=== PATIENT | male | born 1970 | race Two or more races ===

== ENCOUNTER 2025-10-31 12:21 | Emergency (ER) | payer MEDICAID, SELFPAY ==
[2025-10-31 12:34] VITALS: BP 236/110; PULSE 65; RESP 18; TEMP 36.6; O2SAT 98; BMI 34.4
--- NOTE | 2025-10-31 12:37 | EKG_ITS ---
[facility] Test Date: 2025-10-31 Pat Name: PRADIP MUNSON Department: Room: - Gender: Male [employer]: : 1970 Requested By: ED Temporary Provider Order Number: [id number] Reading MD: ED Temporary Provider Measurements Intervals [place] Rate: 69 P: 20 SD: 135 QRS: 0 QRSD: 121 T: 69 QT: 408 QTc: 438 Interpretive Statements SINUS RHYTHM MODERATE INTRAVENTRICULAR CONDUCTION DELAY [110+ ms QRS DURATION] NONSPECIFIC ST & T-WAVE ABNORMALITY No previous ECG available for comparison /store/S0/[id number].pdf
--- NOTE | 2025-10-31 12:43 | XR_ITS ---
EXAMINATION: PA lateral chest 2 views TECHNIQUE: Upright PA lateral chest 2 views Date and time: October 31, 2025, 1246 hours INDICATIONS: Onset high blood pressure today. FINDINGS: Minor rounding left ventricle Ectatic thoracic aorta. No pneumonia or pulmonary edema Moderate thoracic spondylosis IMPRESSION: No pneumonia or pulmonary edema
--- NOTE | 2025-10-31 12:43 | XR_ITS ---
Examination: CT brain head without contrast. 2-D sagittal coronal reconstructions Date and time of exam: October 31, 2025, 1323 hours INDICATIONS: High blood pressure today with head pain CTDI: vol (mGy): 53.4 DLP: (mGycm): 1115 Technique: Multiple CT axial sections of the brain have been obtained, 5 mm slice thickness. Contrast has not been administered. 2-D sagittal, coronal reconstructions have been obtained Low dose protocols were performed. One or more of the following dose reduction techniques were used; automated exposure control, adjustment of the mA and/or KV according to patient size, use of iterative reconstruction technique. Findings: No significant ventricular enlargement. Small old infarct in the left thalamus image 22 Intra-axial or extra-axial hemorrhage density is not seen. No mass effect or midline shift Basal cisterns are not remarkable. Fourth ventricle is midline. Cranial vault intact. 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
--- NOTE | 2025-10-31 12:44 | PD.EDRME ---
Rapid Medical Screening Exam RME Arrival date/time: 10/31/25 12:21 55-year-old male presents to the emergency department today for complaint of hypertension Chief Complaint: General Adult/Misc Complain Vital signs: Vital Signs Temperature 97.9 F 10/31/25 12:34 Pulse Rate 65 10/31/25 12:34 Respiratory Rate 18 10/31/25 12:34 Blood Pressure 236/110 H 10/31/25 12:34 Pulse Oximetry (%) 98 10/31/25 12:34 Oxygen Delivery Method Room Air 10/31/25 12:34 Vital signs reviewed by provider: Yes Exam: On exam patient well-appearing but patient is quite hypertensive Clinical Impression: Labs, EKG, imaging obtained
[2025-10-31 12:58] VITALS: BP 236/110; PULSE 65
[2025-10-31 13:54] LABS: Basophils # (Auto) 0.0 Thou/mm3 (0.0-0.2); Basophils % (Auto) 1 % (0-2.5); Eosinophils # (Auto) 0.1 Thou/mm3 (0.0-0.5); Eosinophils % (Auto) 2 % (0-10); Hematocrit 47.5 % (41.0-53.0); Hemoglobin 16.3 g/dL (13.5-16.0); Immature Granulocytes Auto 0.01 Thou/mm3 (0.00-0.00); Lymphocytes # (Auto) 1.4 Thou/mm3 (1.0-4.8); Lymphocytes % (Auto) 22 % (10-50); Mean Corpuscular HGB Conc 34.3 g/dl (31.0-37.0); Mean Corpuscular Hemoglobin 31.2 pg (25.0-35.0); Mean Corpuscular Volume 91 fL (80-100); Monocytes # (Auto) 0.5 Thou/mm3 (0.0-0.8); Monocytes % (Auto) 8 % (0-12); Neutrophils # (Auto) 4.4 Thou/mm3 (1.8-7.7); Neutrophils % (Auto) 68 % (37-80); Nucleated Red Blood Cell # 0.00 Thou/mm3 (0.00-0.00); Nucleated Red Blood Cell % 0 /100 WBC (0); Platelet Count 181 Thou/mm3 (140-440); RDW Standard Deviation 41.9 fL (35.1-43.9); Red Blood Count 5.22 Miln/mm3 (4.50-5.90); White Blood Count 6.4 Thou/mm3 (3.8-10.6)
[2025-10-31 14:20] LABS: INR 1.0 (0.9-1.3); Partial Thromboplastin Time 30.2 Seconds (22.0-36.0); Prothrombin Time 11.0 Seconds (9.0-12.2)
[2025-10-31 14:24] LABS: B-Type Natriuretic Peptide 77 pg/mL (0-100)
[2025-10-31 14:25] LABS: Alanine Aminotransferase 26 U/L (10-49); Albumin, Serum 5.1 gm/dL (3.5-5.0); Albumin/Globulin Ratio 1.8 (1.2-2.2); Alkaline Phosphatase 80 U/L (46-116); Anion Gap 10 (7-16); Aspartate Amino Transferase 18 U/L (0-34); BUN/Creatinine Ratio 14 Ratio (12-20); Bilirubin,Total 0.7 mg/dL (0.3-1.2); Blood Urea Nitrogen 13 mg/dL (9-23); Calcium 9.2 mg/dL (8.3-10.6); Calcium (Corrected) 9.2 mg/dL (8.5-10.1); Carbon Dioxide 27.9 mMol/L (20.0-31.0); Chloride 104 mMol/L (98-107); Creatinine (Component) 0.9 mg/dL (0.6-1.3); Estimated Creatinine Clearance 103.2 mL/min (>60); Globulin 2.8 gm/dL (2.3-3.5); Glucose 112 mg/dL (74-106); Magnesium 1.9 mg/dL (1.6-2.6); Osmolality,Calculated 284 (275-295); Potassium 3.2 mMol/L (3.4-5.1); Sodium 142 mMol/L (136-145); Total Protein 7.9 gm/dL (5.7-8.2); Troponin I < 0.020 ng/mL (0.0-0.045); eGFR > 60 See Note
--- NOTE | 2025-10-31 16:08 | EDNOTE_ITS ---
ED Recheck Abnl Lab Rx-RME/HPI General Chief Complaint: General Adult/Misc Complain Stated Complaint: HIGH BP, SENT BY [facility] Time Seen by Provider: 10/31/25 15:53 Arrival date/time: 10/31/25 12:21 RME / HPI RME / HPI narrative: 10/31/25 12:21 55-year-old male presents to the emergency department today for complaint of hypertension DR. SEAMAN MAIN ED EVALUATION: Patient with known Hx of HTN reports lightheadedness and upon checking his blood pressure, noted pressure to be elevated to 200/100, prompting presentation to who referred him to ED. Denies headache, chest pain, shortness of breath, or disequilibrium. PMH: HTN-untreated, CVA PSH: Non-contributory Allergies: NKDA Social: Unknown Exam: On exam patient well-appearing but patient is quite hypertensive Impression: Labs, EKG, imaging obtained Related Data Previous Rx's ?Medication ?Instructions ?Recorded nifedipine 30 mg tablet,extended 30 mg PO QDAY HTN #30 tabs 10/31/25 release Allergies Allergy/AdvReac Type Severity Reaction Status Date / Time No Known Allergies Allergy Verified 10/31/25 12:23 Review of Systems Review of Systems Systems Reviewed: All systems reviewed, normal except as documented Past Medical History Past Medical History NEUROLOGIC: Positive Cerebrovascular Accident CARDIAC: Positive Hypertension Social History SMOKING STATUS: Never smoker ED Exam Narrative Physical exam: GEN. APPEARANCE: The patient is alert awake oriented X-3 under no distress, lying down comfortably, does not look ill/toxic. Patient has good eye contact. Patient is cooperative. Markedly hypertensive. VITALS: All vitals were reviewed and the pulse ox is 98%, which is normal according to my interpretation HEENT: Normocephalic, atraumatic and nontender. Pupils are equal and reactive. Oral mucosa is moist. NECK: Supple, nontender, no meningismus, no JVD. There is no thyromegaly and no lymphadenopathy. CHEST: Nontender on palpation no deformity and no crepitus. CARDIOVASCULAR: Heart regular rhythm, no murmur or gallop rub or extra beats. LUNGS: Clear to auscultation bilaterally with symmetrical chest rise. No laboring tachypnea or wheezing. No intercostal subcostal retraction. No rales and no rhonchi. ABDOMEN: Soft, flat, nontender to palpation, no guarding or rebound tenderness. There are no abnormal masses palpated. No pulsatile masses or bruits. Active and normal bowel sounds. EXTREMITIES: Normal inspection and palpation. No edema. No cyanosis. Patient is able to move all 4 extremities well SKIN: Warm and dry, no rashes noted. MUSCULOSKELETAL: No lumbar or midline bony tenderness. There is no CVA tenderness. No paraspinal muscle spasm or tenderness. NEURO: Cranial nerves II through XII grossly intact. There are no focal neurologic deficits noted. GCS is 15 PSYCHIATRIC: Patient is in normal mood and affect, cooperative. LYMPHATICS: No major lymphadenopathy noted. Course Quality Measures none Orders Category Date Time Status EKG (ED ONLY) *Do not use* NOW Care 10/31/25 12:[address] head/brain wo con Stat Exams 10/31/25 12:43 Completed EKG (ED Only) Stat Exams 10/31/25 12:37 Draft XR chest 2V Stat Exams 10/31/25 12:43 Completed B-Type Natriuretic Peptide Stat Lab 10/31/25 13:31 Completed CBC Stat Lab 10/31/25 13:31 Completed Comprehensive Metabolic Panel Stat Lab 10/31/25 13:31 Completed Drug Screen,Urine Stat Lab 10/31/25 12:43 Ordered Magnesium Stat Lab 10/31/25 13:31 Completed Partial Thromboplastin Time Stat Lab 10/31/25 13:31 Completed Prothrombin Time with INR Stat Lab 10/31/25 13:31 Completed Troponin I Stat Lab 10/31/25 13:31 Completed Urinalysis, C/S if Indicated Stat Lab 10/31/25 12:43 Ordered NIFEdipine [Procardia] Med 10/31/25 12:43 Discontinued 20 mg PO X1 ONE Vital Signs Vital signs: Vital Signs Temperature 97.9 F 10/31/25 12:34 Pulse Rate 65 10/31/25 12:34 Respiratory Rate 18 10/31/25 12:34 Blood Pressure 236/110 H 10/31/25 12:34 Pulse Oximetry (%) 98 10/31/25 12:34 Oxygen Delivery Method Room Air 10/31/25 12:34 Recheck / Abnormal Lab / Rx MDM Narrative MDM Narrative:: Scribe Attestation: I, Madeline Mcdaniel, am scribing for and in the presence of Dr. Cochran. Provider Notation: Although this document has been carefully reviewed, there may still be some phonetic and other typographical errors. These errors are purely grammatical due to imperfections in the software program and should not be construed in any way to compromise the substance of the patient's medical care during this visit. Patient with known Hx of HTN reports lightheadedness and upon checking his blood pressure, noted pressure to be elevated to 200/100, prompting presentation to who referred him to ED. Denies headache, chest pain, shortness of breath, or disequilibrium. Please see PE findings. Initially, patient markedly hypertensive and treated with Nfedipine with reduction in blood pressure. Patient observed for several hours and remained neurologically intact throughout ED course. Will reinstitue hypertensive medication. CT demonstrates old infarct. Will imploy baby ASA therapy. Final diagnoses include accelerted hypertension and prior CVA. Patient data External records reviewed:: [facility] previous records (No prior ED records available for review) Clinical information provided by:: patient Social determinants that could affect healthcare access:: none Patient has the following chronic illnesses:: HTN How is presenting disease/condition affected by chronic disease/condition?: exacerbated by Evaluation data The following diagnostics were reviewed and interpreted by me:: lab results, radiology exam(s) and EKG tracing(s) Lab and/or radiology exams considered but not ordered:: None Interpretation Summary: RADIOLOGY Chest X Ray: FINDINGS: Minor rounding left ventricle Ectatic thoracic aorta. No pneumonia or pulmonary edema Moderate thoracic spondylosis IMPRESSION: No pneumonia or pulmonary edema Head/Brain CT: Findings: No significant ventricular enlargement. Small old infarct in the left thalamus image 22 Intra-axial or extra-axial hemorrhage density is not seen. No mass effect or midline shift Basal cisterns are not remarkable. Fourth ventricle is midline. Cranial vault intact. 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 (list below): No Diagnosis Recheck Differential Diagnosis: other (aortic dissection, stroke, hypertensive encephalopathy) Most likely diagnosis given after review of the tests above:: Accelerated HTN, Prior CVA Admission Indicated Admission indicated?: not indicated Explain why admission is indicated or not indicated:: Patient does not meet admission criteria Admission Request Was there a request for admission?: No Disposition Plan Disposition Plan: Discharge Discharge Attestation Discharge Attestation: The patient and all family members were given an opportunity to ask questions and understood the discharge instructions. Discharge instructions specifically effects, indications for sooner follow up or return to the emergency department, and the expected course of current diagnosis. Patient condition: Stable Discharge Plan Plan Patient Disposition: HOME (Self Care) Prescriptions/Referrals Prescriptions/Med Rec: New nifedipine 30 mg tablet extended release 30 mg PO QDAY Qty: 30 1RF Referrals: Bhargav Petersen MD [Primary Care Provider, Family Practice] - In 1 week Problem List Clinical Impression: Accelerated hypertension, History of stroke Patient/Caregiver Discharge Instructions Education Materials: Controlling High Blood Pressure, Hypertension Dc, Your H eart Risk Action Plan Additional Instructions: Low-salt diet. Begin medications on 11/22 continue monitor blood pressure at home and follow-up with primary care doctor in 3 to 5 days. Print Language: Egyptian Stand Alone Forms: Mara Award Info., Patient Portal Info Letter
[2025-10-31 16:11] VITALS: BP 166/96; PULSE 77; RESP 18; TEMP 36.4; O2SAT 96
== END 2025-10-31 16:28 | disposition home or self-care (01) ==
PROVIDERS: Nurse Practitioner Primary Care; Emergency Provider Emergency Medicine; PCP Family Medicine
DX: I10 Essential (primary) hypertension (principal); R51.9 Headache, unspecified; Z86.73 Personal history of transient ischemic attack (TIA), and cerebral infarction without residual deficits; I45.89 Other specified conduction disorders
CPT/HCPCS: 36415; 70450; 71046; 80053; 80307; 81001; 83735; 83880; 84484; 85025; 85610; 85730; 93005; 99283; A9270